=== PATIENT | female | born 1960 | race Caucasian/White ===

== ENCOUNTER → 2024-12-22 14:49 | Outpatient (CLI) | payer OTHER, SELFPAY ==
--- NOTE | 2024-12-22 14:52 | DI.MG.S_ITS ---
MM screening mammo BI: 12/22/2024. BI-RADS: 1 CLINICAL: 64-year old female for bilateral screening mammogram. Tyrer-Cuzick lifetime risk of 10.1%. Current reported family history of breast cancer: mother, sister and second sister. PRIOR EXAMS: Reviewed previous images from 2023, 2022 and 2021. No prior examinations available. MAMMOGRAPHY TECHNIQUE: 2D and 3D (tomosynthesis) digital mammographic views obtained, with additional images as needed for full coverage. Current study was also evaluated with a Computer Aided Detection (CAD) system. DENSITY A. The breasts are almost entirely fatty. MAMMOGRAPHY FINDINGS Bilateral: No suspicious mass, asymmetry, microcalcification, or other abnormality seen. No significant change from comparison. IMPRESSION: * No evidence of malignancy. RECOMMENDATIONS Bilateral * Annual screening mammography. OVERALL ASSESSMENT CATEGORY BI-RADS-1: Negative. [employer] recommends annual screening mammography beginning at age 40 for women with average risk of breast cancer. ELECTRONICALLY SIGNED: Loli Loera M.D. on 12/26/2024 at 11:34:07 AM PT Interpreting Station ID: [id number]
== END ==
PROVIDERS: Visit Provider Family Medicine
DX: Z12.31 Encounter for screening mammogram for malignant neoplasm of breast (principal); R92.313 Mammographic fatty tissue density, bilateral breasts; Z80.3 Family history of malignant neoplasm of breast
CPT/HCPCS: 77063; 77067